=== PATIENT | male | born 1995 ===

== ENCOUNTER 2017-04-27 21:53 | Emergency (ER) | payer BC ==
[2017-04-27 22:03] VITALS: BP 145/80
[2017-04-27] MEDS ORDERED: Clobetasol 0.05% Crm 30 GM Tube TOP STA (23:03)
[2017-04-27] MEDS ORDERED: Acetaminophen/HYDROcodone 325-5 MG Tab PO ONE (23:16)
--- NOTE | 2017-04-27 23:16 | EDM.PDOC ---
ED HPI GENERAL MEDICAL PROBLEM - General Chief Complaint: Skin Complaint Stated Complaint: FEET ARE RED AND FEEL LIKE THEYRE ON FIRE Time Seen by Provider: 04/27/17 22:29 Source of Information: Reports: Patient, Family (Mother, ) History Limitations: Reports: No Limitations - History of Present Illness INITIAL COMMENTS - FREE TEXT/NARRATIVE: The patient states that he noticed a burning sensation to the soles of his feet around 13:00 this afternoon. He did not get his work boots off until he got home around 20:00, at which time he found a significant rash primarily to the soles of his feet, as well as to the dorsal aspect of his toes. The patient states that he soaked his feet in Epsom salt at home, prior to coming to the ED. The patient's states that the patient was wearing new socks this morning, but the socks come up to above his ankles, and the rash is only as above. 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 He acknowledges that he was standing in chemical water today. He wears steel-toed leather boots. No prior similar symptoms. The patient does not have a PCP. Bilateral Feet Pain Score (Numeric/FACES): 7 - Related Data Allergies Allergy/AdvReac Type Severity Reaction Status Date / Time amoxicillin [Amoxicillin] Allergy Hives Verified 11/23/14 17:07 bandaids Allergy Redness Uncoded 07/23/14 17:38 Home Meds: Home Meds Clobetasol [Clobetasol Propionate 0.05%] 1 applic TOP BID #1 tube 04/27/17 [Rx] Past Medical History Musculoskeletal History: Reports: Other (See Below) (Juvenile arthritis) Psychiatric History: Reports: ADD Social & Family History - Tobacco Use Tobacco Use Within Last Twelve Months: Smokeless Tobacco (Chews 1/2 can per day since 2011) Second Hand Smoke Exposure: No - Caffeine Use Caffeine Use: Reports: Energy Drinks - Alcohol Use Alcohol Use History: Yes Days Per Week of Alcohol Use: 0 Alcohol Use Frequency: Socially - Recreational Drug Use Recreational Drug Use: No - Living Situation & Occupation Living situation: Reports: , with Spouse Occupation: Employed (Spill cleanup) ED ROS GENERAL - Review of Systems Review Of Systems: ROS reveals no pertinent complaints other than HPI. ED EXAM, SKIN/RASH Exam: See Below Exam Limited By: No Limitations General Appearance: Alert, WD/WN, No Apparent Distress Extremities: Other (Deeply erythematous and slightly raised rash in numerous patches primarily to the soles of both feet, and slightly to the dorsal aspects of the patient's toes, but not elsewhere on the dorsal aspects of the patient's feet, or proximally. Areas of rash are tender. Neurovascular status of bilateral lower extremities is intact.) Course - Vital Signs Last Recorded V/S: Last Vital Signs Temp 36.9 C 04/27/17 22:02 Pulse 97 04/27/17 22:02 Resp 20 04/27/17 22:02 BP 145/80 H 04/27/17 22:02 Pulse Ox 98 04/27/17 22:02 - Orders/Labs/Meds Meds: Medications Discontinued Medications Generic Name Dose Route Start Last Admin Trade Name Seb PRN Reason Stop Dose Admin Hydrocodone Bitart/Acetaminophen 2 tab 04/27/17 23:16 04/27/17 23:28 [place] 325-5 Mg PO 04/27/17 23:17 2 tab ONETIME ONE Administration Hydrocodone Bitart/Acetaminophen Confirm 04/27/17 23:37 04/27/17 23:51 Take Home: Acetam/Hydrocodon 325-5 Mg, 5 Pack Administered 04/27/17 23:38 Not Given Dose 1 packet .ROUTE .STK-MED ONE Clobetasol Propionate 1 gm 04/27/17 23:03 04/27/17 23:51 Clobetasol 0.05% TOP 04/27/17 23:04 Not Given ONETIME STA - Re-Assessments/Exams Free Text/Narrative Re-Assessment/Exam: 04/27/17 23:09 The patient appears to be suffering from contact dermatitis to the soles of his feet and, to a small degree, to the dorsal aspect of his toes, but not to the remainder of the dorsal aspects of his feet. 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 Given the distribution of his rash, I think it most likely that his contact dermatitis is due to exposure to chemicals at work. Less likely is a reaction to his new socks, however, I would expect his reaction would have been in the distribution of his socks, including up on his ankles, which it is not. The recommended treatment for acute irritant contact dermatitis is a topical high-dose steroid applied once or twice a day for 4-6 weeks. I am having Dahiana RN check to see if we carry any high-dose steroids here in the hospital. 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 04/27/17 23:16 The patient's feet were washed here in the ED. Unfortunately, this hospital does not have any high-dose topical steroids available. I have ordered 2 tablets of Arlington now, and will discharge him home with an [facility] Rx for 6 tablets. I will e-prescribe clobetasol propionate 0.05% cream that he can garbage pick up man in the morning, and I will refer him to Dr. Becerra for further evaluation and treatment. Departure - Departure Time of Disposition: 23:17 Disposition: Home, Self-Care 01 Condition: Fair Clinical Impression: Irritant contact dermatitis due to chemical - Discharge Information Prescriptions: Clobetasol [Clobetasol Propionate 0.05%] 1 applic TOP BID #1 tube Instructions: Contact Dermatitis, [id number] Referrals: PCP,Brendon [Primary Care Provider] - Meg Becerra [Physician] - Forms: ED Department Discharge, ED Return to Work/School Form Additional Instructions: You were seen in the emergency room for a burning rash on the soles of your feet. Based on your history and physical examination, you are MOST LIKELY suffering from an acute irritant contact dermatitis due to exposure to chemicals at work. The treatment of acute irritant contact dermatitis is to apply a high-dose topical steroid to the rash once or twice a day for 4-6 weeks. Unfortunately, we do not carry high-dose topical steroids in the hospital. You will have to fill a prescription. A prescription for clobetasol cream has been sent to the [facility], located in the [facility] [employer] store. Apply a thin smear of the cream to any place on your feet that have a rash, twice a day. It is VERY IMPORTANT that you either wear gloves or thoroughly wash off any cream that is on your hands, after you apply the cream to your feet. For pain, take [id number] ibuprofen, 2-3 tablets (400-600 mg) every 8 hours, with food. Take 1 to 2 tablets of [place] up to every 6 hours, as needed for pain not relieved by ibuprofen. If you take Arlington, do not drive or operate heavy machinery within 10 hours. Arlington may cause constipation, so consider taking a stool softener. Follow-up with Dr. Becerra in the clinic tomorrow, 04/28/2017. If any other problems, please do not hesitate to return to the ER.
[2017-04-27] MEDS ORDERED: Take Home: Acetaminophen/HYDROcodone 325-5 MG, 5 Tab Pack ONE (23:37)
== END 2017-04-27 23:50 | disposition home or self-care (01) ==
LOC: JD.ED 21:53
DX: T52.0X1A Toxic effect of petroleum products, accidental (unintentional), initial encounter (principal); L24.5 Irritant contact dermatitis due to other chemical products; Z88.1 Allergy status to other antibiotic agents; Z79.899 Other long term (current) drug therapy
CPT/HCPCS: 99283; A9270